=== PATIENT | male | born 1960 | race Caucasian/White ===

== ENCOUNTER → 2016-08-04 | Outpatient (CLI) | payer SELFPAY ==
[~2016-08-04] MED LIST: TOPROL XL100 MG PO; ZESTORETIC 25 M1 TAB PO
[2016-08-04 11:45] VITALS: BP 122/87
[2016-08-04 13:30] VITALS: BP 153/91
[2016-08-04 13:54] VITALS: BP 145/102
[2016-08-04 16:25] VITALS: BP 151/99
== END ==
LOC: AMSURD 11:14
DX: K52.9 Noninfective gastroenteritis and colitis, unspecified (principal); R42 Dizziness and giddiness
CPT/HCPCS: J7030

== ENCOUNTER → 2016-08-18 | Outpatient (REF) | LOC: RAD 06:56 | DX: I10 Essential (primary) hypertension (principal); R27.8 Other lack of coordination; R42 Dizziness and giddiness; J32.9 Chronic sinusitis, unspecified ==

== ENCOUNTER → 2019-10-04 | Outpatient (CLI) | payer SELFPAY ==
[2016-08-04 16:25] VITALS: BP 151/99
[2019-10-04 09:31] LABS: ALBUMIN 4.2 g/dL (3.4-4.8); POTASSIUM 3.9 mmol/L (3.5-5.1)
[2019-10-04 09:33] LABS: CALCIUM 9.1 mg/dL (8.3-10.5)
[2019-10-04 09:34] LABS: TOTAL PROTEIN 7.4 g/dL (6.2-8.1)
[2019-10-04 09:36] LABS: TOTAL BILIRUBIN 0.6 mg/dL (0.2-1.2)
[2019-10-04 10:47] LABS: CKMB ISOENZYME 2.7 ng/mL (0.0-3.5)
== END ==
LOC: LAB 09:06
PROVIDERS: Family Medicine
DX: Z00.00 Encounter for general adult medical examination without abnormal findings (principal); I10 Essential (primary) hypertension; Z12.12 Encounter for screening for malignant neoplasm of rectum; E78.49 Other hyperlipidemia

== ENCOUNTER → 2020-10-10 | Outpatient (CLI) | payer OTHER ==
[2016-08-04 16:25] VITALS: BP 151/99
[2020-10-10 10:56] LABS: POTASSIUM 4.2 mmol/L (3.5-5.1)
[2020-10-10 10:57] LABS: CALCIUM 9.2 mg/dL (8.3-10.5)
[2020-10-10 10:58] LABS: TOTAL PROTEIN 7.3 g/dL (6.2-8.1)
[2020-10-10 11:00] LABS: TOTAL BILIRUBIN 0.5 mg/dL (0.2-1.2)
== END ==
LOC: LAB 10:32
PROVIDERS: Family Medicine
DX: Z12.5 Encounter for screening for malignant neoplasm of prostate (principal); I10 Essential (primary) hypertension; E78.00 Pure hypercholesterolemia, unspecified